=== PATIENT | female | born 1975 | race Caucasian/White ===

== ENCOUNTER 2018-06-26 19:03 | Emergency (ER) | payer MEDICAID ==
[2018-06-26] MEDS ORDERED: HYDROcod/ACETAM 5/325 MG TABLET PO STA (20:47)
--- NOTE | 2018-06-26 20:47 | ED Physician Documentation ---
History of Present Illness - Stated complaint Stated Complaint: R KNEE PX - Chief complaint Chief Complaint: Ext Problem - History obtained from History obtained from: Patient - History of Present Illness Timing: Today Pain level max: 8 Pain level now: 8 Quality: painful Improved by: rest Worsened by: movement - Additonal information Additional information: 43 year old female that states she has had B calf pain for the past several months. States that she felt a pop today and now can't walk. States pain to posterior R knee and R calf. Review of Systems Constitutional: denies: Fever, Chills Respiratory: denies: Cough GI: denies: Nausea, Vomiting : denies: Now EGA Skin: denies: Rash Musculoskeletal: denies: Neck pain, Back pain Neurologic: denies: Focal weakness, Numbness PD PAST MEDICAL HISTORY - Past Medical History Past Medical History: No - Past Surgical History Past Surgical History: No - Present Medications Home Medications: Ambulatory Orders Medication Instructions Recorded Confirmed Hydrocodone/Acetaminophen 1 - 2 each PO Q6H PRN #14 tablet 06/26/18 [Hydrocodon-Acetaminophen 5-325] Rivaroxaban [Xarelto] 15 mg PO BID #42 tablet 06/26/18 - Allergies Allergies/Adverse Reactions: Allergies Allergy/AdvReac Type Severity Reaction Status Date / Time No Known Drug Allergies Allergy Verified 06/26/18 19:14 - Living Situation Living Arrangement: reports: At home - Social History Does the pt smoke?: No Does the pt drink ETOH?: No - Family History Family history: reports: Non contributory PD ED PE NORMAL - Vitals Vital signs reviewed: Yes - General General: Alert and oriented X 3, No acute distress - HEENT HEENT: Moist mucous membranes - Neck Neck: Supple, no meningeal sign - Cardiac Cardiac: RRR, No murmur - Respiratory Respiratory: No respiratory distress, Clear bilaterally - Abdomen Abdomen: Soft, Non tender, Non distended - Derm Derm: Warm and dry - Extremities Extremities: Other (Tender to palpation posterior proximal calf. Neurovascularly intact. No palpable cord. Mild swelling) - Neuro Neuro: Alert and oriented X 3 - Psych Psych: Normal mood Results - Vitals Vitals: Oxygen O2 Source Room air - Rads (name of study) Duplex ultrasound right lower extremity Radiology: Prelim report reviewed, EMP read contemporaneously, See rad report ( DVT in the right calf involving the anterior tibial vein. Other veins are unremarkable) PD MEDICAL DECISION MAKING - ED course Complexity details: reviewed results, re-evaluated patient, considered differential, d/w patient ED course: Patient is a 43-year-old female presents to the emergency department with right lower extremity pain. History sounds consistent with something such as a Lee' s cyst, but on ultrasound found to have a DVT in the anterior tibial vein. We had a long discussion at the bedside regarding different methods of anticoagulation and decided on Xarelto. Will start her on this and have her follow-up with her doctor for further care. She was counseled regarding the risks and benefits of the medication as well as the risks of bleeding and the fact that there is no reversal agent for Xarelto. Patient is comfortable with these risks. Patient counseled regarding signs and symptoms for which I believe and urgent re-evaluation would be necessary. Patient with good understanding of and agreement to plan and is comfortable going home at this time This document was made in part using voice recognition software. While efforts are made to proofread this document, sound alike and grammatical errors may occur. - Sepsis Event Vital Signs: Oxygen O2 Source Room air Departure - Departure Disposition: Home, Self Care Clinical Impression: DVT (deep venous thrombosis) Qualifiers: DVT location: lower extremity Affected thrombotic vein of extremity: tibial Chronicity: acute Laterality: right Qualified Code(s): I82.441 - Acute embolism and thrombosis of right tibial vein Condition: Good Instructions: ED DVT Follow-Up: Marielos Bertrand ARNP [Primary Care Provider] - (within 1-2 weeks) Prescriptions: Hydrocodone/Acetaminophen [Hydrocodon-Acetaminophen 5-325] 1 - 2 each PO Q6H PRN #14 tablet PRN Reason: pain Rivaroxaban [Xarelto] 15 mg PO BID #42 tablet Comments: You will be on Xarelto 15 mg by mouth twice daily for the first 21 days, then your doctor will need to change you to Xarelto 20 mg by mouth daily likely for 6 months. Return if you worsen. Follow-up with your doctor for further care. Do not drink alcohol or drive while on narcotic pain medicine. Note that many narcotic pain relievers also contain tylenol/acetaminophen. Please ensure that your total dose of acetaminophen from all sources does not exceed 3 grams (3000mg) per day. You may constipated on this medication, take a stool softener such as "Colace" twice a day while you are on it. Also recommend a bbhk-fnc-ldskhks laxative such as senna or MiraLAX any day that you do not have a bowel movement. If you received narcotic pain medication in the emergency department, do not drive or operate machinery for the next 24 hours. Discharge Date/Time: 06/26/18 23:30
--- NOTE | 2018-06-26 22:50 | Ultrasound Report ---
Procedure Date: 06/26/2018 Accession Number: [id number] / [id number] Procedure: US - Duplex Ext Veins Right CPT Code: FULL RESULT: EXAM: RIGHT LOWER EXTREMITY VENOUS ULTRASOUND EXAM DATE: 06/26/2018 10:20 PM. CLINICAL HISTORY: R LE pain, swelling posterior knee. COMPARISON: None. TECHNIQUE: Real-time sonographic vascular imaging was performed by the canal equipment mechanic through the lower extremity utilizing both color-flow and Doppler spectral analysis. Multiple food service sales representatives static images were saved for review. FINDINGS: Common Femoral Vein (CFV): Normal. CFV-GSV Junction: Normal. Profunda Femoral Vein (PFV): Normal. Femoral Vein (FV) Prox: Normal. Femoral Vein (FV) Mid: Normal. Femoral Vein (FV) Dist: Normal. Popliteal Vein: Normal. Posterior Tibial Veins: Normal. Peroneal Veins: Normal. Contralateral Side CFV: Normal. Other: DVT in the right calf involving the anterior tibial vein. IMPRESSION: 1. DVT in the right calf involving the anterior tibial vein. 2. Other veins are unremarkable. RADIA
[2018-06-26] MEDS ORDERED: RIVAROXABAN 15 MG TABLET PO STA (23:03)
[2018-06-26 23:37] VITALS: BP 141/94
== END 2018-06-26 23:30 | disposition home or self-care (01) ==
LOC: ED 19:03
DX: I82.441 Acute embolism and thrombosis of right tibial vein (principal)
CPT/HCPCS: 93971; 99283; A9270

== ENCOUNTER 2019-08-11 20:06 | Emergency (ER) | payer MEDICAID ==
[2019-08-11] MEDS ORDERED: HYDROcod/ACETAM 5/325 MG TABLET PO STA (20:24)
--- NOTE | 2019-08-11 22:04 | XRAY Report ---
Reason: fall, R wrist pain Procedure Date: 08/11/2019 Accession Number: [id number] / [id number] Procedure: XR - Wrist 4 View RT CPT Code: FULL RESULT: EXAM: RIGHT WRIST RADIOGRAPHY EXAM DATE: 08/11/2019 09:42 PM. CLINICAL HISTORY: Fall, right wrist pain. COMPARISON: None. No evidence of right wrist fracture. TECHNIQUE: 4 views. FINDINGS: Bones: Normal. No fractures or bone lesions. Curvilinear calcification between the lunate and triquetrum on the lateral view likely accessory ossicle. Joints: Normal. No subluxations. Soft Tissues: Normal. No soft tissue swelling. IMPRESSION: Normal wrist radiography. RADIA
--- NOTE | 2019-08-11 22:07 | ED Physician Documentation ---
PD HPI UPPER EXT INJURY - Stated complaint Stated Complaint: RIGHT WRIST PX - Chief complaint Chief Complaint: Ext Problem - History obtained from History obtained from: Patient - History of Present Illness Location: Right, Wrist Type of injury: Fall Where injury occurred: Home Timing - onset: How many weeks ago (1) Timing - duration: Weeks (1) Timing - details: Gradual onset Pain level max: 9 Pain level now: 9 Improved by: Rest, Ice, Immobilization Worsened by: Moving, Palpating Associated symptoms: No: Weakness, Numbness, Tingling, Swelling Recently seen: Not recently seen - Additonal information Additional information: pt is right handed. states injured it again after lifting an item >20lbs today. Review of Systems : denies: Now EGA Neurologic: denies: Focal weakness, Numbness PD PAST MEDICAL HISTORY - Past Medical History Cardiovascular: None Respiratory: None Neuro: None Endocrine/Autoimmune: None GI: None : None HEENT: None Psych: Other Musculoskeletal: Osteoarthritis, Fatigue, Chronic back pain Derm: None - Past Surgical History Past Surgical History: No - Present Medications Home Medications: Ambulatory Orders Medication Instructions Recorded Confirmed Acetaminophen [8Hr Arthritis Pain 650 mg PO ONCE 08/11/19 08/11/19 Relief] Hydrocodone/Acetaminophen 1 - 2 each PO Q6H PRN #14 tablet 08/11/19 [Hydrocodon-Acetaminophen 5-325] Ibuprofen [Motrin] 800 mg PO Q8H PRN #30 tablet 08/11/19 - Allergies Allergies/Adverse Reactions: Allergies Allergy/AdvReac Type Severity Reaction Status Date / Time acetaminophen [From Percocet] AdvReac Nausea Verified 08/11/19 20:12 oxycodone [From Percocet] AdvReac Nausea Verified 08/11/19 20:12 - Social History Does the pt smoke?: No Smoking Status: Never smoker Does the pt drink ETOH?: No Does the pt have substance abuse?: No - Immunizations Immunizations are current?: Yes - POLST Patient has POLST: No PD ED PE NORMAL - Vitals Vital signs reviewed: Yes - General General: Alert and oriented X 3, No acute distress - Derm Derm: Warm and dry - Extremities Extremities: Other (Right wrist and hand - Mild diffuse tenderness to palpation about the right wrist. Neurovascularly intact. No snuffbox tenderness.) - Neuro Neuro: Alert and oriented X 3 Results - Vitals Vitals: Vital Signs - 24 hr 08/11/19 08/11/19 20:08 22:11 Temperature 36.7 C Heart Rate 94 72 Respiratory 18 18 Rate Blood Pressure 136/103 H 115/83 H O2 Saturation 99 97 Oxygen O2 Source Room air - Rads (name of study) Right wrist x-ray Radiology: Prelim report reviewed, EMP read contemporaneously, See rad report (Normal) PD MEDICAL DECISION MAKING - ED course Complexity details: reviewed results, considered differential, d/w patient ED course: 44-year-old female with a right wrist sprain. We will continue supportive care and follow-up with her doctor. She feels better in a Velcro thumb spica so we will place her in this. We will have her remove this frequently and start stretching the wrist and hand. Patient counseled regarding signs and symptoms for which I believe and urgent re-evaluation would be necessary. Patient with good understanding of and agreement to plan and is comfortable going home at this time This document was made in part using voice recognition software. While efforts are made to proofread this document, sound alike and grammatical errors may occur. Departure - Departure Disposition: 01 Home, Self Care Clinical Impression: Right wrist sprain Qualifiers: Encounter type: initial encounter Qualified Code(s): S63.501A - Unspecified sprain of right wrist, initial encounter Condition: Good Instructions: ED Sprain Wrist Follow-Up: your,doctor in 1 week if not better [Other] Prescriptions: Hydrocodone/Acetaminophen [Hydrocodon-Acetaminophen 5-325] 1 - 2 each PO Q6H PRN #14 tablet PRN Reason: pain Ibuprofen [Motrin] 800 mg PO Q8H PRN #30 tablet PRN Reason: PAIN &/OR FEVER Comments: Return if you worsen. Wear the brace as needed. Continue to gently stretch the hand and wrist. Your xray is normal today. Do not drink alcohol or drive while on narcotic pain medicine. Note that many narcotic pain relievers also contain tylenol/acetaminophen. Please ensure that your total dose of acetaminophen from all sources does not exceed 3 grams (3000mg) per day. You may constipated on this medication, take a stool softener such as "Colace" twice a day while you are on it. Also recommend a hlrg-vrl-bgobmzm laxative such as senna or MiraLAX any day that you do not have a bowel movement. If you received narcotic pain medication in the emergency department, do not drive or operate machinery for the next 24 hours. Discharge Date/Time: 08/11/19 22:18
[2019-08-11 22:12] VITALS: BP 115/83
== END 2019-08-11 22:18 | disposition home or self-care (01) ==
LOC: ED 20:06
DX: S63.501A Unspecified sprain of right wrist, initial encounter (principal); X50.0XXA Overexertion from strenuous movement or load, initial encounter; Y93.89 Activity, other specified; Y92.512 Supermarket, store or market as the place of occurrence of the external cause
CPT/HCPCS: 73110; 99283; A9270

== ENCOUNTER 2022-05-10 19:44 | Emergency (ER) | payer MEDICAID ==
[2022-05-10] MEDS ORDERED: HYDROmorphone 1 MG/ML CARPUJECT IM STA (20:48)
[2022-05-10] MEDS ORDERED: KETOROLAC 60 MG/2 ML VIAL IM STA (20:48)
--- NOTE | 2022-05-10 20:49 | ED Physician Documentation ---
PD HPI LOWER EXT INJURY - Stated complaint Stated Complaint: RT KNEE INJ - Chief complaint Chief Complaint: Ext Problem - History obtained from History obtained from: Patient (She had a right knee replacement last June with Dr. Adame in [place]. Today had a trip and fall and hit the curb with her knee and now has severe pain. No other injuries.) Review of Systems Constitutional: reports: Reviewed and negative Cardiac: reports: Reviewed and negative Respiratory: reports: Reviewed and negative PD PAST MEDICAL HISTORY - Past Medical History Cardiovascular: None Respiratory: None Neuro: None Endocrine/Autoimmune: None GI: None : None HEENT: None Psych: Other Musculoskeletal: Osteoarthritis, Fatigue, Chronic back pain Derm: None - Past Surgical History Past Surgical History: No - Present Medications Home Medications: Ambulatory Orders Medication Instructions Recorded Confirmed Acetaminophen [8Hr Arthritis Pain 650 mg PO ONCE 08/11/19 08/11/19 Relief] Hydrocodone/Acetaminophen 1 - 2 each PO Q6H PRN #14 tablet 08/11/19 [Hydrocodon-Acetaminophen 5-325] Ibuprofen [Motrin] 800 mg PO Q8H PRN #30 tablet 08/11/19 HYDROcod/ACETAM 5/325 [[place] 5/325] 1 - 2 tab PO Q6H PRN #15 tablet 05/10/22 Meloxicam [Mobic] 7.5 mg PO BID PRN #20 tablet 05/10/22 - Allergies Allergies/Adverse Reactions: Allergies Allergy/AdvReac Type Severity Reaction Status Date / Time acetaminophen [From Percocet] AdvReac Nausea Verified 05/10/22 20:26 oxycodone [From Percocet] AdvReac Nausea Verified 05/10/22 20:26 - Social History Does the pt smoke?: No Smoking Status: Never smoker Does the pt drink ETOH?: No Does the pt have substance abuse?: No - Immunizations Immunizations are current?: Yes - POLST Patient has POLST: No PD ED PE NORMAL - Vitals Vital signs reviewed: Yes - General General: Alert and oriented X 3, No acute distress - Extremities Extremities: Other (Right knee is quite swollen anteriorly with both anterior and lateral tenderness. Unable to check ligaments on initial exam due to severity of pain.) - Neuro Neuro: Alert and oriented X 3, Normal speech Results - Vitals Vitals: Vital Signs - 24 hr 05/10/22 05/10/22 19:53 22:19 Temperature 36.5 C 36.5 C Heart Rate 87 87 Respiratory 18 16 Rate Blood Pressure 140/86 H 130/80 O2 Saturation 99 100 Oxygen O2 Source Room air PD MEDICAL DECISION MAKING - ED course ED course: 47yo with knee contusion p fall. Xr neg except small effusion. Was able to ambulate here. Given knee immibolizer and pain control. D/W pt need for f/u with ortho. Departure - Departure Disposition: 01 Home, Self Care Clinical Impression: Contusion of right knee Condition: Good Record reviewed to determine appropriate education?: Yes Instructions: ED Sprain Knee Prescriptions: Meloxicam [Mobic] 7.5 mg PO BID PRN #20 tablet PRN Reason: Pain HYDROcod/ACETAM 5/325 [[place] 5/325] 1 - 2 tab PO Q6H PRN #15 tablet PRN Reason: Pain Comments: If not better within the week, follow-up with your orthopedist. Return for new or worsening symptoms. I sent your prescription electronically to [facility] in [place]. I am prescribing a short course of narcotic pain medication for you. These are potentially dangerous and addictive medications that should be used carefully. These medications may constipate you. Take an xkwc-gop-kimoqvy stool softener (docusate) twice daily with plenty of water while taking these medications. If you go 24 hours without a bowel movement, take ecdt-txq-peuwpyd miralax, per package instructions. Do not drink or drive while taking these medications. If you received narcotic or sedating medications while in the emergency department, do not drive for 24 hours. Store this medication in a safe, secure place and out of reach of children. It is a violation of federal law to give or sell this medication to another person or to use in a manner other than prescribed. The ED will not refill narcotic prescriptions, including prescriptions lost or stolen. To dispose of unwanted medications: 1. [facility] at [address] in [place] has a medication drop box. They accept prescription medications (in pill form) Tuesday through Tuesday 9:00 a.m. to 5:00 p.m. 2. The [facility] accepts prescription medications (in pill form only) for disposal year round. Call for more information. 3. Contact the [facility] for the next [facility] sponsored prescription drug collection event. , [phone], or [phone]; Note that many narcotic pain relievers also contain Tylenol/acetaminophen. Please ensure that your total dose of acetaminophen from all sources does not exceed 3 g (3000 mg) per day. Discharge Date/Time: 05/10/22 22:19
[2022-05-10] MEDS ORDERED: HYDROcod/ACET 5/325 Prepack 4 PO STA (22:00)
[2022-05-10 22:20] VITALS: BP 130/80
--- NOTE | 2022-05-11 01:42 | XRAY Report ---
PROCEDURE: Knee 2 View RT INDICATIONS: knee inj TECHNIQUE: 3 views of the right knee were acquired. COMPARISON: None. FINDINGS: Bones: No fractures or dislocations. There is a right knee prosthesis. No definite suspicious peripr osthetic lucencies. No suspicious bony lesions. Soft tissues: There is a small joint effusion. Prepatellar soft tissue swelling is present. No suspic ious soft tissue calcifications. IMPRESSION: 1. No fracture or dislocation. 2. Small joint effusion and prepatellar soft tissue swelling. Reviewed by: Lonnie Leblanc MD on 05/11/2022 1:40 AM PDT Approved by: Lonnie Leblanc MD on 05/11/2022 1:40 AM PDT Station ID: [id number]
== END 2022-05-10 22:19 | disposition home or self-care (01) ==
LOC: ED 19:44
DX: S80.01XA Contusion of right knee, initial encounter (principal); W01.198A Fall on same level from slipping, tripping and stumbling with subsequent striking against other object, initial encounter; Y92.480 Sidewalk as the place of occurrence of the external cause
CPT/HCPCS: 73560; 96372; 99283; J1170